=== PATIENT | female | born 1960 | race Caucasian/White ===

== ENCOUNTER → 2020-04-12 | Outpatient (CLI) | payer BC | END | disposition home or self-care (01) | LOC: CFH 13:47 | PROVIDERS: ATTEND Nurse Practitioner Family | DX: Z12.2 Encounter for screening for malignant neoplasm of respiratory organs (principal); R91.8 Other nonspecific abnormal finding of lung field; Z87.891 Personal history of nicotine dependence | CPT/HCPCS: G0297 ==

== ENCOUNTER → 2020-04-14 | Outpatient (CLI) | payer BC | END | disposition home or self-care (01) | LOC: CARD 15:21 | PROVIDERS: ATTEND Nurse Practitioner Family | DX: J98.4 Other disorders of lung (principal); R06.00 Dyspnea, unspecified | CPT/HCPCS: 94060; 94726; 94729 ==

== ENCOUNTER → 2020-04-30 | Outpatient (CLI) | payer BC ==
[~2020-04-30] MED LIST: ASPI81TA45 PO; CHOL10003 PO; ESCI10TA10 PO; ESTR1TAB7 PO; IBUP-1223 PO; META800T PO; MULT-658 PO; PYRI100T9 PO; TIOT4MIS3 INH; TRIA1TAB3 PO; [UNRECOGNIZED DRUG - OTHER] PO
[2020-04-30 13:28] LABS: BASOPHILS # (AUTO) 0.03 x10^3/uL (0-0.1); BASOPHILS % (AUTO) 0 % (0-1); EOSINOPHILS # (AUTO) 0.11 x10^3/uL (0-0.4); EOSINOPHILS % (AUTO) 1 % (1-7); LYMPHOCYTES # (AUTO) 2.32 x10^3/uL (1-3.4); LYMPHOCYTES % (AUTO) 25 % (22-44); MD NO; MEAN CORPUSCULAR HEMOGLOBIN 29.2 pg (27.0-34.8); MEAN CORPUSCULAR HGB CONC 32.6 g/dL (32.4-35.8); MEAN CORPUSCULAR VOLUME 89.4 fL (80-100); MEAN PLATELET VOLUME 8.5 fL (7.4-10.4); MONOCYTES # (AUTO) 0.57 x10^3/uL (0.2-0.8); MONOCYTES % (AUTO) 6 % (2-9); NEUTROPHILS # (AUTO) 6.29 x10^3/uL (1.8-6.8); NEUTROPHILS % (AUTO) 67 % (42-75); PLATELET COUNT 278 x10^3/uL (130-400); RED BLOOD COUNT 5.15 x10^6/uL (3.82-5.3); RED CELL DISTRIBUTION WIDTH 13.5 % (9.6-15.2)
[2020-04-30 13:37] LABS: INTERNATIONAL NORMALIZED RATIO 1.01 (0.93-1.1); PROTHROMBIN TIME 10.4 Seconds (9.6-11.5)
[2020-04-30 13:42] LABS: ANION GAP 7 mmol/L (5-15); CALCIUM 9.3 mg/dL (8.5-10.1); CHLORIDE 109 mmol/L (98-107)
[2020-04-30 13:45] LABS: ALANINE AMINOTRANSFERASE 42 U/L (12-78); ALKALINE PHOSPHATASE 99 U/L (45-117); BILIRUBIN,TOTAL 0.4 mg/dL (0.2-1.0); CREATININE 0.85 mg/dL (0.55-1.02); TOTAL PROTEIN 7.7 g/dL (6.4-8.2)
== END | disposition home or self-care (01) ==
LOC: STAR 11:02
PROVIDERS: ATTEND Orthopaedic Surgery
DX: Z01.812 Encounter for preprocedural laboratory examination (principal); Z20.828 Contact with and (suspected) exposure to other viral communicable diseases; M16.12 Unilateral primary osteoarthritis, left hip
CPT/HCPCS: 36415; 80053; 83036; 85025; 85610; 85730; 87081; 87635; 93005

== ENCOUNTER 2020-05-05 06:18 | Day surgery (SDC) | payer BC ==
[~2020-05-05] VITALS: Ht 175.3 cm; Wt 134.0 kg
[2020-05-05] MEDS: FENTANYL PF 100 MCG/2ML IV PRN ×3 (01:56→09:45)
[2020-05-05] MEDS ORDERED: ROPIvacaine/PF 0.5%, 20 ML ONE (06:48)
[2020-05-05] MEDS ORDERED: VANCOMYCIN 1,000 MG ONE (06:48)
[2020-05-05] MEDS ORDERED: KETOROLAC 60 MG/2 ML ONE (06:48)
[2020-05-05] MEDS ORDERED: SODIUM CHLORIDE 0.9% 50 ML ONE (06:48)
[2020-05-05] MEDS ORDERED: BISACODYL 10 MG SUPP PR PRN (07:00)
[2020-05-05] MEDS ORDERED: ONDANSETRON 4 MG TABLET PO PRN (07:00)
[2020-05-05] MEDS ORDERED: ACETAMINOPHEN 650 MG/20.3 ML UDC PO PRN (07:00)
[2020-05-05] MEDS ORDERED: ONDANSETRON 2MG/ML, 2ML IV PRN (07:00)
[2020-05-05] MEDS ORDERED: HYDROcodone/APAP 5/325 TABLET PO PRN (07:00)
[2020-05-05] MEDS ORDERED: MAGNESIUM HYDROXIDE 8%, 30ML UDC PO PRN (07:00)
[2020-05-05] MEDS ORDERED: SENNA/DOCUSATE TABLET PO PRN (07:00)
[2020-05-05] MEDS ORDERED: DIPHENHYDRAMINE 50 MG CAPSULE PO PRN (07:00)
[2020-05-05] MEDS ORDERED: ZOLPIDEM 5MG TABLET PO PRN (07:00)
[2020-05-05] MEDS ORDERED: CHLORHEXIDINE 15 ML UDC MM STA (07:06)
[2020-05-05] MEDS ORDERED: LACTATED RINGERS 1,000 ML IV ONE (07:06)
[2020-05-05] MEDS ORDERED: GABAPENTIN 300 MG CAPSULE PO STA (07:07)
[2020-05-05] MEDS ORDERED: ACETAMINOPHEN 500 MG TABLET PO STA (07:07)
[2020-05-05] MEDS ORDERED: FENTANYL PF 250 MCG/5ML ONE ×2 (07:28→08:50)
[2020-05-05] MEDS ORDERED: DEXAMETHASONE 4 MG/ML, 1ML ONE (07:39)
[2020-05-05] MEDS ORDERED: NEOSTIGMINE 1 MG/ML, 10ML ONE (07:39)
[2020-05-05] MEDS ORDERED: SUCCINYLCHOLINE 20 MG/ML, 10ML ONE (07:39)
[2020-05-05] MEDS ORDERED: CEFAZOLIN 1,000 MG ONE (07:39)
[2020-05-05] MEDS ORDERED: PROPOFOL 50 ML ONE (07:39)
[2020-05-05] MEDS ORDERED: ONDANSETRON 2MG/ML, 2ML ONE (07:39)
[2020-05-05] MEDS ORDERED: PROPOFOL 10 MG/ML, 20ML ONE (07:39)
[2020-05-05] MEDS ORDERED: GLYCOPYRROLATE 0.2MG/1ML, 5ML ONE (07:39)
[2020-05-05] MEDS ORDERED: ROCURONIUM 10 MG/ML,10ML ONE (08:00)
[2020-05-05] MEDS: PYRIDOXINE (VITAMIN B6) 100 MG TAB PO SCH (09:00)
[2020-05-05] MEDS: DOCUSATE 100 MG CAPSULE PO SCH ×2 (09:00→21:16)
[2020-05-05] MEDS ORDERED: TRANEXAMIC ACID 100 MG/ML, 10ML ONE ×2 (09:34)
[2020-05-05] MEDS ORDERED: LORazepam 2 MG/ML, 1ML ONE (09:51)
[2020-05-05] MEDS ORDERED: OXYcodone 5 MG/5 ML ORAL.SOL UDC ONE (09:52)
[2020-05-05] MEDS ORDERED: FENTANYL PF 100 MCG/2ML ONE (09:52)
[2020-05-05] MEDS ORDERED: ALBUTEROL SULFATE 2.5 MG/3 ML NPPB PRN (10:00)
[2020-05-05] MEDS ORDERED: MEPERIDINE/PF 25MG/0.5ML IVPush PRN (10:00)
[2020-05-05] MEDS ORDERED: LORazepam 2 MG/ML, 1ML IVPush ONE (10:00)
[2020-05-05] MEDS ORDERED: EPHEDRINE 50 MG/ML, 1ML IVPush PRN (10:00)
[2020-05-05] MEDS ORDERED: LABETALOL 5MG/ML, 20ML IV PRN (10:00)
[2020-05-05] MEDS ORDERED: hydrALAzine 20 MG/ML, 1ML IV PRN (10:00)
[2020-05-05] MEDS ORDERED: HYDROmorphone 1 MG/ML, 1ML INJ IVPush PRN (10:00)
[2020-05-05] MEDS ORDERED: LORazepam 0.5MG TABLET PO ONE (10:00)
[2020-05-05] MEDS ORDERED: OXYcodone 5 MG/5 ML ORAL.SOL UDC PO PRN (10:00)
[2020-05-05] MEDS ORDERED: ACETAMINOPHEN 325 MG TABLET PO PRN (10:00)
[2020-05-05] MEDS ORDERED: PROMETHAZINE 12.5 MG SUPP PR PRN (10:00)
[2020-05-05 12:00] VITALS: BP 96/60
[2020-05-05] MEDS: NS + 20MEQ KCL 1,000 ML IV SCH (13:17)
[2020-05-05] MEDS: TRIAMTERENE-HCTZ 37.5/25 MG TABLET PO SCH (14:06)
[2020-05-05] MEDS: ESCITALOPRAM 10MG TABLET PO SCH (14:07)
[2020-05-05] MEDS: CEFAZOLIN PMX 2GM/50ML 50 ML IVPB SCH ×2 (15:38→23:25)
[2020-05-05] MEDS: OXYcodone IR 5MG TABLET PO PRN ×2 (15:55→21:17)
[2020-05-05] MEDS: ASPIRIN 81 MG TABLET EC PO SCH (17:02)
[2020-05-05 19:26] VITALS: BP 104/65
[2020-05-05 23:29] VITALS: BP 119/69
[2020-05-06] MEDS: OXYcodone IR 5MG TABLET PO PRN ×3 (01:17→10:44)
[2020-05-06] MEDS: NS + 20MEQ KCL 1,000 ML IV SCH (03:00)
[2020-05-06 05:10] VITALS: BP 102/58
[2020-05-06] MEDS: ASPIRIN 81 MG TABLET EC PO SCH (05:33)
[2020-05-06] MEDS ORDERED: DEXAMETHASONE 4 MG/ML, 1ML IVPush SCH (06:00)
[2020-05-06 07:25] VITALS: BP 123/74
[2020-05-06] MEDS: TRIAMTERENE-HCTZ 37.5/25 MG TABLET PO SCH (08:37)
[2020-05-06] MEDS: ESCITALOPRAM 10MG TABLET PO SCH (08:38)
[2020-05-06] MEDS: DOCUSATE 100 MG CAPSULE PO SCH (08:38)
[2020-05-06] MEDS: PYRIDOXINE (VITAMIN B6) 100 MG TAB PO SCH (08:39)
[2020-05-06 10:44] VITALS: BP 124/70
== END 2020-05-06 11:25 | disposition home or self-care (01) ==
LOC: OUT 06:18 → 4NE 11:00 → OUT 23:24 → 4NE 23:25 → UNDOADMOB 23:25 → INTOOBSV 23:25 → 4NE 05-06 11:13 → DCLOUNGE 05-06 11:13 → OUT 05-06 11:25 → UNDODISOB 05-06 11:25
PROVIDERS: ATTEND Orthopaedic Surgery
DX: M16.12 Unilateral primary osteoarthritis, left hip (principal); M25.752 Osteophyte, left hip; J44.9 Chronic obstructive pulmonary disease, unspecified; G47.33 Obstructive sleep apnea (adult) (pediatric); E66.01 Morbid (severe) obesity due to excess calories; Z79.82 Long term (current) use of aspirin; Z79.1 Long term (current) use of non-steroidal anti-inflammatories (NSAID); Z79.899 Other long term (current) drug therapy; Z87.891 Personal history of nicotine dependence; Z88.8 Allergy status to other drugs, medicaments and biological substances; Z99.81 Dependence on supplemental oxygen; Z82.61 Family history of arthritis
CPT/HCPCS: 27130; 36415; 72170; 73501; 85014; 85018; 97110; 97116; 97161; 97165; 97530; C1713; C1776; J0330; J0690; J1100; J1885; J2060; J2405; J2704; J2710; J2795; J3010; J3370; J3480; J7120; 76000; G0378

== ENCOUNTER 2020-06-17 14:54 | Day surgery (SDC) | payer BC ==
[~2020-06-17] VITALS: Ht 175.3 cm; Wt 129.5 kg
[2020-06-17] MEDS ORDERED: SUCCINYLCHOLINE 20 MG/ML, 10ML ONE (14:56)
[2020-06-17] MEDS ORDERED: ROCURONIUM 10MG/ML,5ML ONE (14:56)
[2020-06-17] MEDS ORDERED: METAXALONE PO (15:14)
[2020-06-17] MEDS ORDERED: CHLORHEXIDINE 15 ML UDC MM STA (15:17)
[2020-06-17] MEDS ORDERED: LACTATED RINGERS 1,000 ML IV SCH (15:30)
[2020-06-17 15:52] VITALS: BP 138/82
[2020-06-17] MEDS ORDERED: VANCOMYCIN 1,000 MG ONE ×2 (17:22→17:30)
[2020-06-17] MEDS ORDERED: ROPIvacaine/PF 0.5%, 20 ML ONE (17:22)
[2020-06-17] MEDS ORDERED: EPINEPHRINE 1 MG/ML, 1ML ONE (17:22)
[2020-06-17] MEDS ORDERED: SODIUM CHLORIDE 0.9% 0 ML ONE (17:22)
[2020-06-17] MEDS ORDERED: ROPIvacaine/PF 0.5%, 30 ML ONE (17:22)
[2020-06-17] MEDS ORDERED: KETOROLAC 60 MG/2 ML ONE (17:22)
[2020-06-17] MEDS ORDERED: TRANEXAMIC ACID 100 MG/ML, 10ML ONE ×2 (17:22)
[2020-06-17] MEDS ORDERED: FENTANYL PF 100 MCG/2ML ONE ×3 (17:24→18:36)
[2020-06-17] MEDS ORDERED: LIDOCAINE-MPF 2% ,5ML ONE (17:25)
[2020-06-17] MEDS ORDERED: CEFAZOLIN 1,000 MG ONE ×2 (17:57)
[2020-06-17] MEDS ORDERED: ONDANSETRON 2MG/ML, 2ML ONE (17:57)
[2020-06-17] MEDS ORDERED: PROPOFOL 10 MG/ML, 20ML ONE (17:57)
[2020-06-17] MEDS ORDERED: DEXAMETHASONE 4 MG/ML, 1ML ONE (17:57)
[2020-06-17] MEDS ORDERED: KETOROLAC 30 MG/1 ML ONE (17:57)
[2020-06-17] MEDS ORDERED: MEPERIDINE/PF 25MG/0.5ML IVPush PRN (18:30)
[2020-06-17] MEDS ORDERED: ALBUTEROL SULFATE 2.5 MG/3 ML NPPB PRN (18:30)
[2020-06-17] MEDS ORDERED: hydrALAzine 20 MG/ML, 1ML IV PRN (18:30)
[2020-06-17] MEDS ORDERED: LABETALOL 5MG/ML, 20ML IV PRN (18:30)
[2020-06-17] MEDS ORDERED: HYDROmorphone 1 MG/ML, 1ML INJ IVPush PRN (18:30)
[2020-06-17] MEDS ORDERED: PROMETHAZINE 25 MG/ML, 1ML IVPush PRN (18:30)
[2020-06-17] MEDS ORDERED: ACETAMINOPHEN 325 MG TABLET PO PRN ×2 (18:30→19:00)
[2020-06-17] MEDS ORDERED: LORazepam 2 MG/ML, 1ML IVPush PRN (18:30)
[2020-06-17] MEDS ORDERED: OXYcodone 5 MG/5 ML ORAL.SOL UDC PO PRN ×2 (18:30→19:00)
[2020-06-17] MEDS ORDERED: OXYcodone 5 MG/5 ML ORAL.SOL UDC ONE (18:36)
[2020-06-17] MEDS: FENTANYL PF 100 MCG/2ML IV PRN ×2 (18:37→18:43)
[2020-06-17] MEDS ORDERED: HYDROmorphone 1 MG/ML, 1ML INJ IM PRN (19:00)
[2020-06-17] MEDS ORDERED: PROMETHAZINE 25 MG/ML, 1ML IM PRN (19:00)
[2020-06-17] MEDS ORDERED: ONDANSETRON 2MG/ML, 2ML IVPush PRN (19:00)
[2020-06-17 20:20] VITALS: BP 108/68
[2020-06-17] MEDS ORDERED: HYDR-3240 PO (20:27)
[2020-06-17] MEDS ORDERED: LINE600T15 PO (20:27)
== END 2020-06-17 22:00 | disposition home or self-care (01) ==
LOC: OUT 14:54 → 4NE 19:45 → OUT 22:00
PROVIDERS: ATTEND Orthopaedic Surgery
DX: T81.31XA Disruption of external operation (surgical) wound, not elsewhere classified, initial encounter (principal); Z20.828 Contact with and (suspected) exposure to other viral communicable diseases; J44.9 Chronic obstructive pulmonary disease, unspecified; G47.33 Obstructive sleep apnea (adult) (pediatric); I10 Essential (primary) hypertension; F32.9 Major depressive disorder, single episode, unspecified; E66.01 Morbid (severe) obesity due to excess calories; F17.210 Nicotine dependence, cigarettes, uncomplicated; Z79.899 Other long term (current) drug therapy; Z88.1 Allergy status to other antibiotic agents; Z96.642 Presence of left artificial hip joint; Z99.81 Dependence on supplemental oxygen; Y83.8 Other surgical procedures as the cause of abnormal reaction of the patient, or of later complication, without mention of misadventure at the time of the procedure
CPT/HCPCS: 13160; 87070; 87075; 87077; 87186; 87205; 87635; J0330; J0690; J1100; J1885; J2405; J2704; J3010; J3370; G0378; J0171; J2795

== ENCOUNTER → 2020-09-17 | Outpatient (CLI) | payer BC ==
[~2020-09-17] MED LIST changes: +HYDR-1067 PO; +LINE600T15 PO; +METAXALONE PO
== END | disposition home or self-care (01) ==
LOC: CFH 10:12
PROVIDERS: ATTEND Nurse Practitioner Family
DX: R91.8 Other nonspecific abnormal finding of lung field (principal)
CPT/HCPCS: 71250